=== PATIENT | female | born 1955 | race Caucasian/White ===

== ENCOUNTER 2016-11-20 20:02 | Emergency (ER) | payer OTHER ==
[~2016-11-20] VITALS: Ht 170.2 cm; Wt 147.4 kg
--- NOTE | 2016-11-20 20:07 | NUR ---
PATIENT BROUGHT IN BY RESCUE FROM HOME FOR C/O DEPRESSION BUT DENIES SI AT THE TIME. PATIENT STATES HAS BEEN DEPRESSED AFTER BEING INPATIENT AT [facility] X4 MONTHS FOR NECROTIZING FASCIITIS. PATIENT ASLO C./O LEFT HIP PAIN AND RIGHT LEG PAIN, NO RESP DISTRESS NOTED OR REPORTED UPON ASSESSMENT... MD AT BEDSIDE...
[2016-11-20 20:39] LABS: BASOPHILS # (AUTO) 0.1 K/uL (0.0-8.0); BASOPHILS % (AUTO) 1.4 % (0.0-2.0); EOSINOPHILS # (AUTO) 0.5 K/uL (0.0-0.7); EOSINOPHILS % (AUTO) 4.6 % (0.0-7.0); HEMATOCRIT 27.8 % (37-47); HEMOGLOBIN 8.6 G/DL (12.0-16.0); LYMPHOCYTES # (AUTO) 1.2 K/UL (0.8-4.8); LYMPHOCYTES % (AUTO) 12.7 % (20.5-51.5); MEAN CORPUSCULAR HEMOGLOBIN 23.8 UUG (27.0-31.0); MEAN CORPUSCULAR HGB CONC 31 g/dL (32.0-37.0); MEAN CORPUSCULAR VOLUME 76.7 FL (81.0-99.0); MONOCYTES # (AUTO) 0.8 K/UL (0.1-1.30); MONOCYTES % (AUTO) 8.5 % (0.0-11.0); NEUTROPHILS # (AUTO) 7.2 K/UL (1.8-8.9); NEUTROPHILS % (AUTO) 72.8 % (38.5-71.5); PLATELET COUNT (AUTO) 310 K/UL (150-450); RED BLOOD CELL COUNT(AUTO) 3.62 MIL/UL (4.2-5.4); WHITE BLOOD COUNT (AUTO) 9.8 K/UL (4.0-11.2)
[2016-11-20 20:51] LABS: ALANINE AMINOTRANSFERASE 11 U/L (14-59); ALKALINE PHOSPHATASE 79 U/L (50-136); ASPARTATE AMINOTRANSFERASE 15 U/L (15-37); BILIRUBIN,DIRECT 0.2 mg/dL (0.0-0.2); BILIRUBIN,TOTAL 0.7 mg/dL (0.2-1.0); CARBON DIOXIDE 27 mmol/L (21-32); CHLORIDE 106 mmol/L (98-107); CREATININE 0.8 mg/dL (0.6-1.3); ETHANOL < 3 MG/DL (0-0); GLUCOSE 138 mg/dL (74-106); POTASSIUM 3.9 mmol/L (3.5-5.1); TOTAL PROTEIN, SERUM 7.1 g/dL (6.4-8.2); UREA NITROGEN, BLOOD 16 mg/dL (7-18)
[2016-11-20 20:52] LABS: ACETAMINOPHEN < 2.0 ug/mL (10-30)
[2016-11-20] MEDS ORDERED: IBUPROFEN 400 MG TABLET PO ONE (21:15)
[2016-11-20] MEDS ORDERED: IBUPROFEN 400 MG TABLET ONE (21:37)
[2016-11-20] MEDS ORDERED: KETOROLAC TROMETHAMINE 30 MG INJ IM ONE (21:45)
[2016-11-20] MEDS ORDERED: KETOROLAC TROMETHAMINE 30 MG INJ ONE (21:50)
--- NOTE | 2016-11-20 21:55 | NUR ---
PER ERMD, DRESSING CHANGE PERFORMED, PT TOLERATED DRESSING CHANGE WELL TO RIGHT LEG...
--- NOTE | 2016-11-20 22:21 | NUR ---
CONTACTED [facility], SPOKE WITH DARVIN, STATES SHE WILL FAX OVER PTS MEDICAL HX AND MEDICATIONS, STATES SHE WILL ASSIGN CASE TO MD, STATES [facility] WILL BE CALLING IN 30-60 MINS...
--- NOTE | 2016-11-20 22:46 | NUR ---
CALL RECEIVED FROM LADONNA Baron/ [facility] , CALLER STATES TO HAVE DESIGNATED LPS ASSESS PT THAN TO HAVE LPS CALL BACK TO GIVE CLINICALS...
--- NOTE | 2016-11-20 22:50 | NUR ---
CONTACTED [facility] JAG CHARLES, ADVISED PT IN NEED OF PSYCH EVAL...
[2016-11-21] MEDS ORDERED: ATEN25TA PO (01:16)
[2016-11-21] MEDS ORDERED: LAMO150T2 PO (01:16)
[2016-11-21] MEDS ORDERED: ZINC220C8 PO (01:16)
[2016-11-21] MEDS ORDERED: ARIP20TA4 PO (01:16)
[2016-11-21] MEDS ORDERED: OMEP20TA20 PO (01:16)
[2016-11-21] MEDS ORDERED: ALPR0.5T8 PO (01:16)
--- NOTE | 2016-11-21 01:41 | NUR ---
CONTACTED [facility] , REQUESTING UPDATE, SPOKE WITH BRAYAN WHO STATES 3 FACILITIES HAVE BEEN CONTACTED, ALL 3 HAVE DECLINED, STATES SHE WILL BE CONTACTING MORE FACILITIES, ADVISED [facility] HAS A BED AVAILABLE, BRAYAN STATED NO CONTRACT FOR [facility].... ALSO RECEIVED CALL FROM YENIFER WITH [facility], BOTH ADVISING THAT [facility] STILL LOOKING FOR BED... FLOR DID STATE THAT IF NO BED WAS FOUND THAT [facility] WOULD BE ASSIGNED AND WOULD BE GIVEN [facility] A CALL FOR CLINICALS....
--- NOTE | 2016-11-21 01:49 | NUR ---
pt requesting pain medication. MD notified. Awaiting further orders.
[2016-11-21] MEDS ORDERED: HYDROCODONE/APAP 5-325MG TABLET PO ONE (02:00)
[2016-11-21] MEDS ORDERED: HYDROCODONE/APAP 5-325MG TABLET ONE (02:04)
--- NOTE | 2016-11-21 02:29 | NUR ---
[facility] billing representative called back. Gave transfer info. Patient will be going to [facility] ER [phone]. Rogelio MEADE is Dr Patterson. ETA of package pick up [phone]
--- NOTE | 2016-11-21 03:08 | NUR ---
CONTACTED [facility], SPOKE WITH CARL COLÓN [phone], GAVE REPORT....
--- NOTE | 2016-11-21 04:30 | NUR ---
[facility] HERE TO MICRO PHOTOGRAPHER PT...
--- NOTE | 2016-11-21 04:32 | NUR ---
Patient Tranfers to outside Facility Physician: DR. SOLANO Location: [facility]
== END 2016-11-21 04:35 | disposition short-term general hospital (02) ==
LOC: ER 20:04
DX: D64.9 Anemia, unspecified (principal); R45.851 Suicidal ideations; F31.9 Bipolar disorder, unspecified; I10 Essential (primary) hypertension; J45.909 Unspecified asthma, uncomplicated; M25.552 Pain in left hip; E11.9 Type 2 diabetes mellitus without complications; Z88.8 Allergy status to other drugs, medicaments and biological substances; W01.0XXA Fall on same level from slipping, tripping and stumbling without subsequent striking against object, initial encounter; Y93.89 Activity, other specified; Y99.8 Other external cause status; Y92.89 Other specified places as the place of occurrence of the external cause
CPT/HCPCS: 36415; 73502; 85025; A4663; G0480; G0480-TC; J1885

== ENCOUNTER 2020-12-24 15:42 | Inpatient (IN) | payer MEDICARE, OTHER ==
[~2020-12-24] VITALS: Ht 162.6 cm; Wt 109.3 kg
[~2020-12-24 15:42] MED LIST: ALPR0.5T8 PO; ARIP20TA4 PO; ATEN25TA PO; LAMO150T2 PO; OMEP20TA20 PO; ZINC1CAP2 PO
[2020-12-24] MEDS ORDERED: ASPIRIN 325 MG TABLET PO ONE (16:15)
--- NOTE | 2020-12-24 16:18 | NUR ---
at bedside for MSE at this time.
--- NOTE | 2020-12-24 16:19 | NUR ---
Code Stroke activated by , reported last well known time 1600 yesterday (12/23/20).
--- NOTE | 2020-12-24 16:20 | NUR ---
Telemed request entered via PC, connect ID:[id number].
[2020-12-24] MEDS ORDERED: ASPIRIN 325 MG TABLET ONE (16:27)
--- NOTE | 2020-12-24 16:29 | NUR ---
Pt to CT via aury with certified ophthalmic technician and MARCELLA Ritchie.
[2020-12-24 16:31] LABS: HEMATOCRIT 25.4 % (31.2-41.9); MEAN CORPUSCULAR HEMOGLOBIN 27.5 uug (24.7-32.8); MEAN CORPUSCULAR VOLUME 83.1 fL (75.5-95.3); PLATELET COUNT (AUTO) 334 K/uL (179-408)
[2020-12-24 16:37] LABS: CREATININE 1.3 mg/dL (0.6-1.3); POTASSIUM 4.6 mmol/L (3.5-5.1)
[2020-12-24] MEDS ORDERED: SWABABLE VALVE TRANSFER SET EA MC ONE (16:47)
[2020-12-24] MEDS ORDERED: IV NORMAL SALINE 250 ML IV ONE (16:47)
[2020-12-24] MEDS ORDERED: IOHEXOL 350 100 ML INFUS..BTL ONE (16:47)
[2020-12-24] MEDS ORDERED: KETOROLAC TROMETHAMINE 15 MG INJ ONE (17:10)
[2020-12-24] MEDS ORDERED: KETOROLAC TROMETHAMINE 15 MG INJ IVP ONE (17:15)
--- NOTE | 2020-12-24 17:29 | NUR ---
Pt brought back to ER in w/c by nursing anhydrous ammonia production supervisor and MARCELLA Herron. Pt placed in room 1a.
--- NOTE | 2020-12-24 17:30 | NUR ---
Patient returned to room 1A after CT via wheelchair, accompanied by video games storywriter and powerhouse laborer.
[2020-12-24] MEDS ORDERED: MORPHINE SULFATE 2 MG/1 ML DISP.SYRIN IV ONE (17:45)
[2020-12-24] MEDS ORDERED: MORPHINE SULFATE 2 MG/1 ML DISP.SYRIN ONE (17:51)
--- NOTE | 2020-12-24 17:55 | NUR ---
Dr. Beyer on the telephone with Dr. Knapp (tele neurologist).
--- NOTE | 2020-12-24 18:19 | NUR ---
Paged Anthony PRESSURE SEALER AND TESTER for admission panel
--- NOTE | 2020-12-24 18:30 | NUR ---
Patient is resting comfortably in bed with eyes closed, arousable to name
[2020-12-24] MEDS ORDERED: FUROSEMIDE 40 MG/4 ML VIAL IV ONE (18:45)
[2020-12-24] MEDS ORDERED: FUROSEMIDE 40 MG/4 ML VIAL ONE (18:53)
--- NOTE | 2020-12-24 19:13 | NUR ---
Report given to Reuben NARANJO
--- NOTE | 2020-12-24 20:18 | NUR ---
Patient will be going to telemetry room 308, MARCELLA Slaughter will be the nurse.
[2020-12-24] MEDS ORDERED: ACETAMINOPHEN 325 MG TABLET PO ONE (20:45)
[2020-12-24] MEDS ORDERED: ONDANSETRON 4 MG/2 ML VIAL IV PRN (21:00)
[2020-12-24] MEDS ORDERED: MAGNESIUM HYDROXIDE 30 ML LIQUID UDC PO PRN (21:00)
[2020-12-24] MEDS ORDERED: Z GUARD REMEDY PASTE 57 GM TUBE TOP PRN (21:00)
--- NOTE | 2020-12-24 21:34 | NUR ---
TEXTED DR. BHAT FOR MRI APPROVAL.
--- NOTE | 2020-12-24 21:55 | NUR ---
Pt. admitted to telemetry 308, under care of HospitalistKostas Mendenhall Belongs List completed
[2020-12-24 22:00] VITALS: BP 118/50
--- NOTE | 2020-12-24 22:00 | NUR ---
RECEIVED PATIENT VIA GURNEY FROM ER. A/O X4. VERY PLEASANT WHEN APPROACHED. C/O PAIN RIGHT LE. BILATERAL LE VERY SWOLLEN, NON-PITTING AND VERY RED. PLACED ON TELE ORDERED PER ADMISSION ORDER, SR. VS WNL. AFEBRILE. DENIES ANY SOB. H/L NOTED TO RIGHT AC, DISLODGED AND LEAKING. NEW IV STARTED TO RIGHT FA #22 GAUGE. ORIENTED PATIENT TO ROOM AND CALL LIGHT. BED ALARM ON. CALL LIGHT IN REACH. ALL NEEDS ATTENDED. WILL CONTINUE TO MONITOR AND ASSESS.
[2020-12-24] MEDS: SULFAMETH/TRIMETH 800/160 MG TABLET PO SCH (22:30)
--- NOTE | 2020-12-24 22:30 | NUR ---
PATIENT GIVEN PERCOCET 2 TABS PO PRN FOR PAIN. WILL CONTINUE TO MONITOR AND ASSESS.
[2020-12-24] MEDS: ENOXAPARIN SODIUM 40 MG/0.4 ML DISP.SYRIN SQ SCH (22:31)
[2020-12-24] MEDS: OXYCODONE/APAP 5-325 MG TABLET PO PRN (22:31)
[2020-12-25 00:10] VITALS: BP 100/51
[2020-12-25] MEDS: ALPRAZOLAM 0.5 MG TABLET PO PRN (00:10)
[2020-12-25] MEDS ORDERED: Z GUARD REMEDY PASTE 57 GM TUBE TOP PRN (01:30)
[2020-12-25 01:54] LABS: *BILIRUBIN,URIN NEGATIVE (NEGATIVE); *BLOOD, URINE 2+ (NEGATIVE); *CLARITY,URINE CLOUDY (CLEAR); *COLOR,URINE YELLOW (YELLOW); *KETONES,URINE NEGATIVE (NEGATIVE); *UROBILINOGEN,URINE 0.2 E.U./dl (NORMAL); LEUKOCYTE ESTERASE ,URINE 3+ (NEGATIVE); NITRITE, URINE POSITIVE (NEGATIVE); PH,URINE 5.5 (5.0-8.0); UGLUCOSE NEGATIVE (NEGATIVE)
[2020-12-25 02:04] LABS: BACTERIA,URINE MANY /HPF (NONE SEEN); RBC,URINE 50-80 /HPF (0-3); SQUAMOUS EPITHELIAL CELL,UR MODERATE /HPF (NONE SEEN); WBC,URINE TNTC /HPF (0-3)
[2020-12-25 02:09] LABS: *AMPHETAMINE, URINE NEGATIVE (NEGATIVE); *CANNABINOID, URINE NEGATIVE (NEGATIVE); *COCCAINE, URINE NEGATIVE (NEGATIVE); *OPIATE, URINE POSITIVE (NEGATIVE); *PHENCYCLIDINE SCREEN,URINE NEGATIVE (NEGATIVE)
[2020-12-25 04:25] VITALS: BP 116/50
[2020-12-25] MEDS: OXYCODONE/APAP 5-325 MG TABLET PO PRN ×3 (04:37→19:40)
--- NOTE | 2020-12-25 04:37 | NUR ---
PATIENT AWAKE IN BED. C/O PAIN IN RIGHT LOWER LEG. PATIENT GIVEN PERCOCET 2 TAB PO PRN FOR PAIN. VSS. PATIENT HAS ORDER FOR MRI. PATIENT INFORMED ABOUT MRI AND PATIENT STATED SHE DOES NOT WANT TO DO THE MRI AND WANTS TO TALK TO THE MD FIRST. SWIMMING POOL PLASTERER HELPER NOTIFIED. ALL NEEDS ATTENDED.
--- NOTE | 2020-12-25 04:54 | NUR ---
PATIENT AWAKE IN BED. VERY PLEASANT AND COOPERATIVE WITH CARE. PICTURES TAKEN OF BILATERAL LE AND ABDOMINAL FOLD. PATIENT KINDLY REFUSED AT THIS TIME FOR OTHER PICTURES. VERY PAINFUL FOR PATIENT TO MOVE LEGS FOR GROIN PICTURES. REDNESS NOTED. Z-GUARD ORDERED. WILL CONTINUE TO MONITOR AND KEEP SKIN CLEAN AND DRY.
[2020-12-25] MEDS: PANTOPRAZOLE SODIUM 40 MG TABLET.DR PO SCH (06:22)
--- NOTE | 2020-12-25 06:43 | NUR ---
PATIENT ASLEEP IN BED. EASILY AROUSABLE. VSS. ON TELE SR. CALL LIGHT IN REACH. ALL NEEDS ATTENDED. WILL CONTINUE TO MONITOR AND ASSESS.
[2020-12-25 07:49] LABS: HEMATOCRIT 24.5 % (31.2-41.9); MEAN CORPUSCULAR HEMOGLOBIN 27.2 uug (24.7-32.8); MEAN CORPUSCULAR VOLUME 83.5 fL (75.5-95.3); PLATELET COUNT (AUTO) 283 K/uL (179-408)
[2020-12-25 08:17] LABS: BILIRUBIN,TOTAL 0.3 mg/dL (0.2-1.0); CREATININE 1.3 mg/dL (0.6-1.3); MAGNESIUM 2.6 mg/dL (1.8-2.4); PHOSPHOROUS 5.1 mg/dL (2.5-4.9); POTASSIUM 4.4 mmol/L (3.5-5.1); TOTAL PROTEIN, SERUM 5.8 g/dL (6.4-8.2)
[2020-12-25] MEDS: ZINC SULFATE 220 MG CAPSULE PO SCH ×2 (08:24→12:13)
[2020-12-25] MEDS: ATENOLOL 25 MG TABLET PO SCH (08:24)
[2020-12-25] MEDS: ARIPIPRAZOLE 10 MG TABLET PO SCH (08:24)
[2020-12-25] MEDS: SULFAMETH/TRIMETH 800/160 MG TABLET PO SCH ×2 (08:24→20:00)
--- NOTE | 2020-12-25 10:38 | NUR ---
The patient was having Echo Exam. There was a delay in US since the tech had to wait for Echocardiography to be finished.
[2020-12-25] MEDS ORDERED: KETOROLAC TROMETHAMINE 15 MG INJ IVP ONE (11:30)
[2020-12-25 12:00] VITALS: BP 114/50
[2020-12-25] MEDS ORDERED: OXYC-128 PO (14:58)
[2020-12-25] MEDS ORDERED: SULF1TAB48 PO (14:58)
[2020-12-25] MEDS ORDERED: BUSP5TAB3 PO (14:58)
[2020-12-25] MEDS ORDERED: LAMO25TA10 PO (15:04)
[2020-12-25 16:00] VITALS: BP 123/54
--- NOTE | 2020-12-25 16:00 | NUR ---
pt went for mri via ambulances in stable condition to [facility]
[2020-12-25] MEDS: busPIRone 5 MG TABLET PO SCH (16:05)
--- NOTE | 2020-12-25 18:00 | NUR ---
pt received back from mri via ambulances per report pt refused to do the mri pt was screaming over there md made aware
[2020-12-25] MEDS: ENOXAPARIN SODIUM 40 MG/0.4 ML DISP.SYRIN SQ SCH (20:01)
[2020-12-25 20:09] VITALS: BP 106/44
--- NOTE | 2020-12-25 21:33 | NUR ---
Patient is resting comfortably in bed with eyes closed, arousable to name
[2020-12-26 04:09] VITALS: BP 121/48
[2020-12-26] MEDS: OXYCODONE/APAP 5-325 MG TABLET PO PRN ×2 (04:31→21:57)
[2020-12-26] MEDS: PANTOPRAZOLE SODIUM 40 MG TABLET.DR PO SCH (06:12)
--- NOTE | 2020-12-26 08:00 | NUR ---
RECEIVED PATIENT IN BED AWAKE ALERT AND ORIENTED DENIES PAIN OR DISCOMFORTS AT THIS TIME REMAIN ON ROOM AIR WITH NO S/S OF SHORTNESS OF BREATH AT THIS TIME.LEFT ARM AND LEG IS WEAK BUT ABLE TO MOVE LEFT ARM UPON REQUEST BOTH LOWER EXT RED AND SWOLLEN ELEVATED ON THE PILLOW MADE COMFORTABLE WILL CONTINUE TO UNDERSTAND.
[2020-12-26 08:25] LABS: HEMATOCRIT 24.2 % (31.2-41.9); MEAN CORPUSCULAR HEMOGLOBIN 26.9 uug (24.7-32.8); MEAN CORPUSCULAR VOLUME 83.2 fL (75.5-95.3); PLATELET COUNT (AUTO) 248 K/uL (179-408)
[2020-12-26 08:39] LABS: CREATININE 1.1 mg/dL (0.6-1.3); MAGNESIUM 2.5 mg/dL (1.8-2.4); POTASSIUM 4.4 mmol/L (3.5-5.1)
[2020-12-26] MEDS: busPIRone 5 MG TABLET PO SCH ×2 (08:46→16:48)
[2020-12-26] MEDS: ARIPIPRAZOLE 10 MG TABLET PO SCH (08:46)
[2020-12-26] MEDS: SULFAMETH/TRIMETH 800/160 MG TABLET PO SCH ×2 (08:47→20:04)
[2020-12-26] MEDS: ATENOLOL 25 MG TABLET PO SCH (08:52)
[2020-12-26 12:00] VITALS: BP 137/62
--- NOTE | 2020-12-26 12:50 | NUR ---
SEEN BY THE PHYSICAL THERAPY FOR AMBULATION WITH THE FRONT WHEEL WALKER AND TOLERATED WELL.REMAIN INCONTINENT KEPT CLEAN AND DRY
[2020-12-26] MEDS: ACETAMINOPHEN 325 MG TABLET PO PRN (15:19)
--- NOTE | 2020-12-26 15:19 | NUR ---
PATIENT REQUESTED FOR TYLENOL STATED HER ARTHRITIS IS BORDERING HER MEDICATED ORDERED AND STATED HELPFUL MADE COMFORTABLE BOTH LOWER EXT REMAINS WITH REDNESS AND SWOLLEN COMPLIANT WITH ALL MEDICATIONS MADE COMFORTABLE NO DISTRESS AT THIS TIME.
[2020-12-26 16:00] VITALS: BP 118/50
--- NOTE | 2020-12-26 18:32 | NUR ---
RESTING WITH NO C/O REMAIN ON ATB ORDERED WITH NO ADVERSE OR ALLERGIC REACTIONS AT THIS TIME.
--- NOTE | 2020-12-26 19:00 | NUR ---
PATIENT AWAKE IN BED. VERY PLEASANT AND COOPERATIVE WITH CARE. vs are stable WILL CONTINUE TO MONITOR call light with in reach
[2020-12-26] MEDS: ENOXAPARIN SODIUM 40 MG/0.4 ML DISP.SYRIN SQ SCH (20:05)
[2020-12-26 20:15] VITALS: BP 117/51
[2020-12-27 00:05] VITALS: BP 119/51
[2020-12-27] MEDS: ALPRAZOLAM 0.5 MG TABLET PO PRN (01:49)
[2020-12-27 04:15] VITALS: BP 125/56
[2020-12-27] MEDS: PANTOPRAZOLE SODIUM 40 MG TABLET.DR PO SCH (06:06)
[2020-12-27 07:18] LABS: HEMATOCRIT 23.5 % (31.2-41.9); MEAN CORPUSCULAR HEMOGLOBIN 27.1 uug (24.7-32.8); MEAN CORPUSCULAR VOLUME 83.3 fL (75.5-95.3); PLATELET COUNT (AUTO) 248 K/uL (179-408)
[2020-12-27 07:38] LABS: CREATININE 0.9 mg/dL (0.6-1.3); MAGNESIUM 2.3 mg/dL (1.8-2.4); PHOSPHOROUS 3.4 mg/dL (2.5-4.9)
[2020-12-27] MEDS: ARIPIPRAZOLE 10 MG TABLET PO SCH (08:23)
[2020-12-27] MEDS: busPIRone 5 MG TABLET PO SCH ×2 (08:23→16:22)
[2020-12-27] MEDS: ATENOLOL 25 MG TABLET PO SCH (08:23)
[2020-12-27] MEDS: SULFAMETH/TRIMETH 800/160 MG TABLET PO SCH ×2 (08:23→20:16)
[2020-12-27] MEDS ORDERED: FUROSEMIDE 40 MG/4 ML VIAL IV SCH (09:00)
[2020-12-27] MEDS: OXYCODONE/APAP 5-325 MG TABLET PO PRN ×2 (10:28→21:32)
[2020-12-27 11:45] VITALS: BP 130/62
[2020-12-27] MEDS: ACETAMINOPHEN 325 MG TABLET PO PRN ×2 (14:21→20:52)
[2020-12-27 15:46] VITALS: BP 113/64
--- NOTE | 2020-12-27 19:40 | NUR ---
PATIENT ALERT ORIENTED, NO SOB NO CHEST PAIN, COMPLAIN OF LOWER LEG PAIN, WILL MEDICATED ORDERED, BILATERAL LEG STILL SWELLING BUT SOFT TO TOUCH, CONT TO ELEVATE, CONT TO MONITOR.
[2020-12-27 20:00] VITALS: BP 112/77
[2020-12-27] MEDS: ENOXAPARIN SODIUM 40 MG/0.4 ML DISP.SYRIN SQ SCH (20:22)
[2020-12-28] VITALS: BP 110/38
[2020-12-28] MEDS: ALPRAZOLAM 0.5 MG TABLET PO PRN (00:24)
[2020-12-28 04:00] VITALS: BP 113/40
--- NOTE | 2020-12-28 05:49 | NUR ---
PATIENT ALERT NO SOB NO CHEST PAIN, TELE MONITOR SINUS RHYTHM, MEDICATED FOR PAIN ON BOTH LOWER EXTREMITIES, AND LEFT ARM, PATIENT LILLIAN LEG SWELLING SUBSIDED SLOWLY, CONT TO MONITOR.
[2020-12-28] MEDS: PANTOPRAZOLE SODIUM 40 MG TABLET.DR PO SCH (06:31)
[2020-12-28 06:36] LABS: HEMATOCRIT 23.8 % (31.2-41.9); MEAN CORPUSCULAR HEMOGLOBIN 26.8 uug (24.7-32.8); MEAN CORPUSCULAR VOLUME 83.1 fL (75.5-95.3); PLATELET COUNT (AUTO) 228 K/uL (179-408)
[2020-12-28 06:57] LABS: CREATININE 0.9 mg/dL (0.6-1.3); MAGNESIUM 2.2 mg/dL (1.8-2.4); PHOSPHOROUS 4.1 mg/dL (2.5-4.9); POTASSIUM 4.1 mmol/L (3.5-5.1)
--- NOTE | 2020-12-28 08:00 | NUR ---
AWAKE ALERT AND ORIENTED X3 NO SS OF PAIN OR SOB, SR ON MONITOR. DC PLANNING INITIATED SEE MEDICAL STAFF SERVICES COORDINATOR NOTES
[2020-12-28] MEDS: ARIPIPRAZOLE 10 MG TABLET PO SCH (08:24)
[2020-12-28] MEDS: busPIRone 5 MG TABLET PO SCH ×2 (08:24→16:14)
[2020-12-28] MEDS: SULFAMETH/TRIMETH 800/160 MG TABLET PO SCH (08:24)
[2020-12-28] MEDS: ATENOLOL 25 MG TABLET PO SCH (08:25)
[2020-12-28] MEDS ORDERED: BUMETANIDE 1 MG TABLET PO SCH (09:00)
--- NOTE | 2020-12-28 11:27 | NUR ---
RESTING COMFORTABLY, PATIENT REFUSED HEART MONITOR MD MADE AWARE WITH ORDER TO DC TELEMETRY
[2020-12-28] MEDS ORDERED: BUME1TAB8 PO (13:40)
[2020-12-28] MEDS ORDERED: Sulfameth/Trimeth 800/160 Mg PO (13:40)
--- NOTE | 2020-12-28 14:00 | NUR ---
SEEN BY ANTOINE FINLEY PLAN DISCHARGE THIS AFTERNOON DIGITAL FORENSIC EXAMINER NOTIFIED REGARDING NEED FOR TRANSPORTATION AND HOME HEALTH FOLLOW-UP
[2020-12-28 15:37] VITALS: BP 101/68
[2020-12-28] MEDS: OXYCODONE/APAP 5-325 MG TABLET PO PRN (16:14)
--- NOTE | 2020-12-28 17:51 | NUR ---
AWAITING TRANSPORTATION FOR HOME WITH HOME HEALTH DISCHARGE. FOLLOW-UP WITH DISCHARGE INSTRUCTION GIVEN, ALSO MEDICATION AND PO ANTIBIOTIC INSTRUCTION GIVEN
--- NOTE | 2020-12-28 20:58 | NUR ---
PATIENT DISCHARGE HOME, PICKED UP BY [facility], REPORT GIVEN TO AMBULANCE STAFF, DISCHARGE PAPER AND ALL BELONGINGS TAKEN BY PATIENT. PATIENT ALERT ORIENTED, STABLE.
[2020-12-29] MEDS ORDERED: AMLO5TAB4 PO (13:16)
== END 2020-12-28 20:55 | disposition home health service (06) | DRG 291 ==
LOC: ER 15:42 → TELE3 21:30 → MEDSURG3 12-28 10:44
PROVIDERS: ADMIT Hospitalist; ATTEND Nurse Practitioner Acute Care
DX: I11.0 Hypertensive heart disease with heart failure (principal); E43 Unspecified severe protein-calorie malnutrition; Z68.41 Body mass index [BMI] 40.0-44.9, adult; F31.9 Bipolar disorder, unspecified; M17.12 Unilateral primary osteoarthritis, left knee; R53.1 Weakness; I27.20 Pulmonary hypertension, unspecified; E66.01 Morbid (severe) obesity due to excess calories; D63.8 Anemia in other chronic diseases classified elsewhere; F41.9 Anxiety disorder, unspecified; E11.9 Type 2 diabetes mellitus without complications; G47.33 Obstructive sleep apnea (adult) (pediatric); J45.909 Unspecified asthma, uncomplicated; K29.70 Gastritis, unspecified, without bleeding; Z20.822 Contact with and (suspected) exposure to COVID-19; I07.1 Rheumatic tricuspid insufficiency; I87.2 Venous insufficiency (chronic) (peripheral); M19.90 Unspecified osteoarthritis, unspecified site; I50.33 Acute on chronic diastolic (congestive) heart failure
CPT/HCPCS: 36415; 70030-TC; 70450; 71045; 83735; 84100; 85025; 85730; 87077; 87086; 93005; 93307; 97161; A4663; G0378; J1650; J1885; J1940; J2270; J7050; Q9967

== ENCOUNTER 2020-12-29 11:22 | Emergency (ER) | payer MEDICARE, OTHER ==
[~2020-12-29] VITALS: Ht 162.6 cm; Wt 113.4 kg
[~2020-12-29 11:22] MED LIST changes: +BUME1TAB8 PO; +BUSP5TAB3 PO; -LAMO150T2 PO; +LAMO25TA10 PO; +OXYC-128 PO; +SULF1TAB48 PO; +Sulfameth/Trimeth 800/160 Mg PO; -ZINC1CAP2 PO
--- NOTE | 2020-12-29 12:05 | NUR ---
PT IS IN ROOM #1A. DR CHANG EVALUATED THE PT.
[2020-12-29 12:40] LABS: MEAN CORPUSCULAR HEMOGLOBIN 26.8 uug (24.7-32.8); MEAN CORPUSCULAR VOLUME 82.4 fL (75.5-95.3); PLATELET COUNT (AUTO) 290 K/uL (179-408)
[2020-12-29] MEDS ORDERED: KETOROLAC TROMETHAMINE 30 MG INJ IM ONE (12:45)
[2020-12-29 12:47] LABS: CREATININE 0.8 mg/dL (0.6-1.3); POTASSIUM 4.1 mmol/L (3.5-5.1)
[2020-12-29] MEDS ORDERED: KETOROLAC TROMETHAMINE 30 MG INJ ONE (12:56)
[2020-12-29 13:04] LABS: BILIRUBIN,TOTAL 0.4 mg/dL (0.2-1.0); TOTAL PROTEIN, SERUM 6.4 g/dL (6.4-8.2)
[2020-12-29] MEDS ORDERED: AMLO5TAB4 PO (13:16)
[2020-12-29 13:18] LABS: THYROID STIMULATING HORMONE 6.166 mIU/mL (0.358-3.740)
[2020-12-29] MEDS ORDERED: BUMETANIDE 1 MG TABLET PO ONE (14:15)
[2020-12-29] MEDS ORDERED: BUMETANIDE 1 MG TABLET ONE (15:00)
--- NOTE | 2020-12-29 16:16 | NUR ---
REPORT WAS GIVEN TO [facility] TECHNICAL SPEC ARTURO. PT WAS EVALUATED BY DR CHANG AND D/C'd TO [facility] [place] [facility]
[2020-12-29 16:20] VITALS: BP 141/79
== END 2020-12-29 16:22 ==
LOC: ER 11:22
DX: I50.9 Heart failure, unspecified (principal); Z20.822 Contact with and (suspected) exposure to COVID-19; G89.29 Other chronic pain; M25.561 Pain in right knee; F31.9 Bipolar disorder, unspecified; E11.9 Type 2 diabetes mellitus without complications; Z79.899 Other long term (current) drug therapy; R94.31 Abnormal electrocardiogram [ECG] [EKG]; Z88.1 Allergy status to other antibiotic agents; M48.00 Spinal stenosis, site unspecified
CPT/HCPCS: 36415; 71045; 80053; 83880; 84436; 84443; 84484; 85025; 85610; 87426; 93005; 96372; 99285; J1885; 70030-TC; A4663